=== PATIENT | female | born 1985 | race Caucasian/White ===

== ENCOUNTER 2023-06-02 14:29 | Outpatient (OUT) | payer OTHER, SELFPAY ==
--- NOTE | 2023-06-02 | XR_ITS ---
[facility] [id number] Patient Name: SANAM FLORES MRN: [id number] date: 1985 Sex: F Assigned Patient Location: [facility] Current Patient Location: Accession/Order Number: [id number] Exam Date: 06/02/2023 02:40 Report Date: 06/03/2023 00:20 At the request of: GISELE ANDINO Procedure: XR ankle LT min 3V PROCEDURE: XR ankle LT min 3V HISTORY: LEFT ANKLE PAIN COMPARISON: XR ankle left 10/02/2021 FINDINGS: BONES:No fracture, acute abnormality, or significant arthropathy. SOFT TISSUES:No visible soft tissue swelling. EFFUSION:None visible. OTHER: Negative. XR/XR ankle LT min 3V IMPRESSION: 1. No acute bone abnormality. 2. Minimal degenerative changes, unchanged. Electronically authenticated by: CHRIS WRAY Date: 06/03/2023 00:20
== END 2023-06-02 14:30 | disposition home or self-care (01) ==
LOC: RAD 14:30
PROVIDERS: Visit Provider Podiatrist Foot & Ankle Surgery
DX: M25.572 Pain in left ankle and joints of left foot (principal)
CPT/HCPCS: 73610

== ENCOUNTER 2023-06-10 13:50 | Outpatient (RCR) | payer OTHER, SELFPAY | END 2023-07-19 09:00 | disposition home or self-care (01) | LOC: PT 13:50 | PROVIDERS: Visit Provider Podiatrist Foot & Ankle Surgery | DX: M76.62 Achilles tendinitis, left leg (principal) | CPT/HCPCS: 97035; 97161 ==